=== PATIENT | male | born 1975 | race Caucasian/White ===

== ENCOUNTER 2025-03-21 01:49 | Day surgery (SDC) | payer BC, SELFPAY ==
[2025-03-07 11:44] VITALS: BMI 29.0
--- OUTSIDE RECORDS SUMMARY | 2025-03-21 01:51 | XMS_ITS | Clinical Summary ---
Author Organization [facility] Address [facility] [place] [address] Care Team Providers Care Slate Picker Name Role Phone Wolf Lucio MD Primary Care Provider Allergies No known active allergies Medications aspirin 81 mg enteric coated tablet Take by mouth 1 Active pedi multivit no.17 w-fluoride (MULTIVITAMINS WITH FLUORIDE ORAL) Apply topically 1 Active albuterol HFA (PROVENTIL HFA,VENTOLIN HFA,PROAIR HFA) 90 mcg/actuation inhaler Apply topically 2 Active cholecalciferol (VITAMIN D-3) 5,000 unit capsule Take by mouth 1 Active cyanocobalamin (Vitamin B-12) 1,000 mcg tablet Vitamin B-12 1,000 mcg tablet 1 Active docosahexaenoic acid-epa (Fish OiL) 120-180 mg capsule Fish Oil 120-180 mg capsule 1 Active metoprolol XL (TOPROL-XL) 25 mg extended release tablet 3 Active nitroglycerin (NITROSTAT) 0.4 mg SL tablet Apply topically 1 Active rosuvastatin (CRESTOR) 10 mg tablet Take 1 tablet (10 mg total) by mouth daily 3 Active zinc sulfate (ZINCATE) 50 mg zinc (220 mg) capsule zinc sulfate 50 mg zinc (220 mg) capsule 1 Active Active Problems Problem Noted Date Diagnosed Date Dysfunction of both eustachian tubes 09/24/2022 Perforation of right tympanic membrane 3 Fluid level behind tympanic membrane of left ear 09/24/2022 Surgical History Surgery Date Site/Laterality Comments COLONOSCOPY 2018 Medical History Medical History Date Comments HL (hearing loss) 3 weeks ago Dizziness 3 weeks ago Headache 3 weeks ago Hypertension 3 years? Family History Medical History Relation Name Comments Hypertension Father Koko Moeller Snoring Father Koko Moeller Cancer Maternal Grandfather Luisito Josue Hearing loss Maternal Grandfather Luisito Velozir Cancer Maternal Grandmother Debra Josue Rheum arthritis Mother Eloisa Moeller Relation Name Status Comments Father Koko Derasud Maternal Grandfather Luisito Josue Maternal Grandmother Debra Josue Mother Eloisa Moeller Social History Tobacco Use Types Packs/Day Years Used Date Smoking Tobacco: Never Assessed Sex and Gender Information Value Date Recorded Sex Assigned at Not on file Legal Sex Male 10:04 PM [employer] Gender Identity Male 09/23/2022 9:49 AM CDT Sexual Orientation Straight 09/23/2022 9: 49 AM CDT Obstetrics History Last Filed Vital Signs Vital Sign Reading Time Taken Comments Blood Pressure 134/93 09/24/2022 12:55 PM CDT Pulse 80 09/24/2022 12:55 PM CDT Temperature - - Respiratory Rate - - Oxygen Saturation - - Inhaled Oxygen Concentration - - Weight 99.8 kg (220 lb) 10/15/2022 5:32 PM CDT Height 188 cm (6' 2) 09/24/2022 12:55 PM CDT Body Mass Index 28.25 09/24/2022 12:55 PM CDT Plan of Treatment Health Maintenance Due Date Last Done Comments Colon Cancer Screening-Colonoscopy 1975 Depression Screening 1975 Hepatitis C Screening 1975 DTaP/Tdap/Td Vaccine (1 - Tdap) 01/08/1987 Hepatitis B Screening 01/08/1994 Regular Well Visit/Exam 18-64 01/08/1994 Covid-19 Vaccine (2024-2 6 season) 2025 05/12/2021, 08/28/2020, 07/26/2020 Influenza Vaccine (#1) 2025 06/29/2017 Pneumococcal vaccine <65 Aged Out No longer eligible based on patient's age to complete this topic Insurance [facility] Address: [address] [place] [address] [facility] CHOICE PLUS [facility]/PPO Address: [address] [place] [address] Care Teams Slate Picker Relationship Specialty Start Date End Date Wolf Lucio MD [address] [facility] [place] [address] PCP - General Internal Medicine 09/10/22
[2025-03-21 08:15] VITALS: BP 130/103; PULSE 66; RESP 19; TEMP 36.6; O2SAT 100
[2025-03-21] MEDS: LACTATED RINGERS 1,000 ML 150 ML IV CONT (08:29)
--- NOTE | 2025-03-21 08:32 | WPDANESEPPF ---
Anes - Initial Pre Proc Eval Procedure: Operation Date: 03/21/25 09:00 Proposed Procedures p Screening Colonoscopy - Jamal Catherine MD s [facility] Hemorrhoid Treatment - Jamal Catherine MD Date/Time: 03/21/25 08:32 Surgeon: Jamal Catherine MD Pre Op Diagnosis: Personal history of colon polyps, unspecified Patient Data Age: 50 Gender: M Height: 1.85 m Weight: 98.7 kg Last Vital Signs Temp 97.9 F 03/21/25 08:15 Pulse 66 03/21/25 08:15 Resp 19 03/21/25 08:15 BP 130/103 H 03/21/25 08:15 Pulse Ox 100 03/21/25 08:15 O2 Del Method Room Air 03/21/25 08:15 Allergies Allergy/AdvReac Type Severity Reaction Status Date / Time No Known Allergies Allergy Unknown Verified 03/21/25 08:14 Home Medications ?Medication ?Instructions ?Recorded ?Confirmed ?Type No Home Medications 03/07/25 03/07/25 History Patient hx anesthesia problems: none Family hx anesthesia problems: none Results Review: All pre-operative results and documents have been reviewed as part of the pre-operative evaluation. [facility] Family History Family History Other Cerebrovascular accident Diabetes mellitus Family history of cardiovascular disease Family history of malignant neoplasm Hypertension Social History Social History Smoking packs per day: 0.5 Smoking cigarettes per day: 10.0 Years smoked: 10 Smoking pack-years: 5.00 Smoking status: Former smoker Tobacco type: cigarettes Smoking end date: 06/29/10 Alcohol intake: current Drinks per week: 5 Alcohol use details: DRINKS/BEERS Substance use: current Substance use type: marijuana Other substance usage details: edibles Lack of Transportation: No Lack of Food: Never True Current Housing: I Have Housing Concerned About Future Housing: No Difficulty Paying Gas/Electric Bills: No Difficulty Paying for Meds: No Currently Unemployed: No Education: Master's Degree or Higher Difficulty w/ Childcare or Family Care: No Living arrangements: with family Spiritual care concerns: No Anes - Eval Final PreProcedure Day of Procedure 03/21/25 08:32 Patient weight: normal Lungs: normal air movement Airway: Mallampati scale class II Neurological: alert and oriented Last oral intake: >/= 8 hours ASA classification: II Emergent: no Anesthetic plan: proceed Anesthesia type and monitoring: general GIVS and standard monitoring Results Review: All pre-operative results and documents have been reviewed as part of the pre-operative evaluation. Ex smoker, quit 2020, pt very active training for marathon currently, no cp or sob. Informed Consent: The patient's anesthetic plan and its attendant risks and benefits were discussed with the patient/family/POA. Questions were solicited and answers provided to the satisfaction of the patient/family/POA.
--- NOTE | 2025-03-21 09:01 | P.HP_ITS ---
History of Present Illness History of Present Illness Consent: Risks, benefits, and alternatives have been discussed and questions answered. Patient agrees to proceed with procedure. Chief complaint: Personal history of colon polyps, unspecified Narrative: Denis Moeller is a 50 year old male with colon polyp years ago, also recently with anal itching possible hemorrhoids Review of Systems Review of Systems: All systems reviewed & are unremarkable except as noted in HPI and below PMFSH Family History Family History Other Cerebrovascular accident Diabetes mellitus Family history of cardiovascular disease Family history of malignant neoplasm Hypertension Social History Social History Smoking packs per day: 0.5 Smoking cigarettes per day: 10.0 Years smoked: 10 Smoking pack-years: 5.00 Smoking status: Former smoker Tobacco type: cigarettes Smoking end date: 06/29/10 Alcohol intake: current Drinks per week: 5 Alcohol use details: DRINKS/BEERS Substance use: current Substance use type: marijuana Other substance usage details: edibles Lack of Transportation: No Lack of Food: Never True Current Housing: I Have Housing Concerned About Future Housing: No Difficulty Paying Gas/Electric Bills: No Difficulty Paying for Meds: No Currently Unemployed: No Education: Master's Degree or Higher Difficulty w/ Childcare or Family Care: No Living arrangements: with family Spiritual care concerns: No Meds Home Medications and Allergies Home Medications ?Medication ?Instructions ?Recorded ?Confirmed ?Type No Home Medications 03/07/25 03/07/25 H istory Allergies Allergy/AdvReac Type Severity Reaction Status Date / Time No Known Allergies Allergy Unknown Verified 03/21/25 08:14 Vital Signs Vital Signs - 24 hr 03/21/25 08:15 Temperature 97.9 F Pulse Rate 66 Respiratory Rate 19 Blood Pressure 130/103 H Pulse Oximetry 100 Oxygen Delivery Room Air Exam Const: General: comfortable and no acute distress HENMT: Face/Nose/Sinus: Normal nares present Eyes: General: appearance normal, both eyes and all related structures Neck: Neck: no JVD Resp: Auscultation: clear to auscultation bilaterally Cardio: Rate: regular rate Rhythm: regular rhythm GI: Inspection: non-distended GI Palp: Yes Soft to palpation Skin: General skin exam: normal color Neuro: Speech: normal speech Extrem: General: normal to inspection Psych: Mental Status: mental status grossly normal Assessment and Plan Assessment and plan (1) Colon polyps: Code(s): K63.5 - Polyp of colon Status: Acute Assessment and Plan: colonoscopy (2) Anal itch: Code(s): L29.0 - Pruritus ani Status: Acute Assessment and Plan: if we find internal hemorrhoids then we can treat with irc
--- NOTE | 2025-03-21 09:16 | S_PTH ---
PATIENT: Denis Moeller LOC: [facility]#:[id number] AGE/SX: 50/M ROOM: RE03/21/[address]: Jamal Catherine MD : 1975 BED: DIS: 03/21/2025 SPEC #: [id number] RECD: 03/21/25 10:22 STATUS: VALENTINA REKatya #: [id number] MAG: 03/21/25 09:[address]: Jamal Catherine DEPT: [facility] Surgical RECD BY: Juana Taylor ENTERED: 03/21/25 10:22 SP TYPE: Surgical OTHR DR: Luciano Kitchen MD Tissues: A - Colon Polypectomy Procedures: Hematoxylin and Eosin Stain Gross and Microscopic Level 4
--- NOTE | 2025-03-21 09:19 | W.PM.PROC2 ---
Procedure Note - Detailed Date of Procedure 03/21/25 Pre-op Diagnosis hemorrhoids Post-op Diagnosis Same Procedure Performed IRC of internal hemorrhoids Surgeon Jamal Catherine MD Anesthesia MAC (also had colonoscopy) Indications bleeding hemorrhoids Findings noted grade II internal hemorrhoids Description of Procedure used anoscope and noted grade II internal hemorrhoids, no active bleeding, no fissure, no lesions. Then advanced IRC probe and hemorrhoids treated for 1.5 seconds x8
[2025-03-21 09:22] VITALS: BP 113/60; PULSE 80; RESP 19; O2SAT 98
[2025-03-21 09:32] VITALS: BP 121/61; PULSE 65; RESP 16; O2SAT 100
[2025-03-21 09:42] VITALS: BP 124/80; PULSE 60; RESP 15; O2SAT 100
== END 2025-03-21 09:53 | disposition home or self-care (01) ==
PROVIDERS: PCP Family Medicine; Referring Provider Family Medicine; Visit Provider Internal Medicine Gastroenterology
PROC: 0DJD8ZZ Inspection of Lower Intestinal Tract, Via Natural or Artificial Opening Endoscopic (ICD-10-PCS; CPT 45378; principal; 2025-03-21 09:00)
PROC: (CPT 46930; 2025-03-21 09:00)
DX: D12.3 Benign neoplasm of transverse colon (principal); K64.8 Other hemorrhoids; K57.30 Diverticulosis of large intestine without perforation or abscess without bleeding; F12.90 Cannabis use, unspecified, uncomplicated; Z87.891 Personal history of nicotine dependence; Z80.9 Family history of malignant neoplasm, unspecified; Z82.49 Family history of ischemic heart disease and other diseases of the circulatory system
CPT/HCPCS: 45385; 46930; 88305; J2003; J2704; J7120